=== PATIENT | female | born 1965 | race Caucasian/White ===

== ENCOUNTER → 2022-09-25 | Outpatient (CLI) | payer SELFPAY ==
[2022-09-30 20:11] LABS: HPV Reflexed? NOT INDICATED
== END | disposition home or self-care (01) ==
PROVIDERS: PCP Family Medicine; Referring Provider Family Medicine; Visit Provider Family Medicine
DX: N95.0 Postmenopausal bleeding (principal)
CPT/HCPCS: 88175; G0145

== ENCOUNTER → 2022-10-04 | Outpatient (CLI) | payer SELFPAY ==
--- NOTE | 2022-10-04 09:11 | US_ITS ---
STUDY: ULTRASOUND OF THE FEMALE PELVIS - COMPLETE REASON FOR EXAM: Female, 57 years old. Post menopausal bleeding LMP: Patient is postmenopausal. TECHNIQUE: Transvaginal TECHNICAL QUALITY: Adequate. COMPARISON: None. FINDINGS: The uterus is anteverted and is in a midline position. The uterus measures 8.5 cm x 6 cm x 4.2 cm. Normal uterine cervix. The endometrium is thickened and measures 6 mm in thickness, and is hyperechoic. There is no demonstrated endometrial mass. Heterogeneous appearance of the myometrium suggesting fibroid change. Several small cystic nodules are seen within the myometrium. The largest measures 6 mm x 6 mm x 5 mm I.U.D. - The patient does not have an I.U.D. The right ovary is visualized. The right ovary measures 2.2 cm x 1.9 cm x 1.8 cm. There is no right ovarian cyst or ovarian mass. There is no visualized right adnexal mass or complex lesion. There is normal arterial and normal venous vascularity. The left ovary is visualized. The left ovary measures 1.8 cm x 1.4 cm x 1.4 cm. There is no left ovarian cyst or ovarian mass. There is no visualized left adnexal mass or complex lesion. There is normal arterial and normal venous vascularity. There is no fluid in the cul-de-sac. US/Transvaginal Non- IMPRESSION: The endometrium is thickened and measures 6 mm. Heterogeneous appearance of the myometrium with several small cystic changes. This is in keeping with fibroid change. Electronically Signed: Esteban Carlton MD at 14:04 EST ,
== END | disposition home or self-care (01) ==
PROVIDERS: PCP Family Medicine; Referring Provider Family Medicine; Visit Provider Family Medicine
DX: N95.0 Postmenopausal bleeding (principal)
CPT/HCPCS: 76830

== ENCOUNTER → 2022-10-14 | Outpatient (CLI) | payer SELFPAY ==
--- NOTE | 2022-10-14 | EMB_PTH ---
PATIENT: GRANT OBREGON LOC: [facility]#:[id number] AGE/SX: 57/F ROOM: RE10/14/[address]: JOCELYNN Pineda : 1965 BED: DIS: 10/14/2022 SPEC #: [id number] RECD: 10/14/22 16:15 STATUS: AGUSTIN REBib #: [id number] ZELALEM: 10/14/22 00:[address]: Donna Jackson NP DEPT: SURGICAL PATHOLOGY RECD BY: August High ENTERED: 10/15/22 09:11 SP TYPE: ENDOM BX/C JULIET DR: Dr. César Granda, DO Tissues: Endometrium, NOS Procedures: Surgery Specimen Level IV HEADER OPERATION: Endometrial biopsy PRE-OP DIAGNOSIS: Postmenopausal bleeding TISSUE SUBMITTED: Endometrial tissue MICROSCOPIC DIAGNOSIS Endometrial biopsy: Proliferative endometrium. Fragments of benign endocervical mucosa, blood and mucus. SJ:erica 10/16/2022 MICROSCOPIC DESCRIPTION Slides are reviewed. GROSS DESCRIPTION Received is one container labeled with the patient's name and not further designated. The specimen consists of multiple fragments of hemorrhagic soft tissue mixed with mucoid tissue that in aggregate measure 2.5 x 1.5 x 0.3 cm. The specimen is totally submitted in one cassette. / SJ:rg 10/15/2022 TC:5 CPT: 98497
== END | disposition home or self-care (01) ==
LOC: LABSPEC 16:21
PROVIDERS: PCP Family Medicine; Referring Provider Nurse Practitioner Women's Health; Visit Provider Nurse Practitioner Women's Health
DX: N95.0 Postmenopausal bleeding (principal)
CPT/HCPCS: 88305